=== PATIENT | male | born 1960 | race Caucasian/White ===

== ENCOUNTER 2016-04-16 14:49 | Emergency (ER) | payer OTHER ==
[~2016-04-16] VITALS: Ht 167.6 cm; Wt 73.8 kg
[~2016-04-16 14:49] MED LIST: KEFLEX500 MG PO; VICODIN 5-3001 EACH PO
[2016-04-16] MEDS ORDERED: BUSPAR5 MG PO (16:38)
[2016-04-16] MEDS ORDERED: WELLBUTRIN XL300 MG PO (16:38)
[2016-04-16] MEDS ORDERED: KEFLEX500 MG PO (19:52)
[2016-04-16 20:45] VITALS: BP 140/85
== END 2016-04-16 20:46 | disposition home or self-care (01) ==
LOC: EME 14:49
PROC: 0HCGXZZ Extirpation of Matter from Left Hand Skin, External Approach (ICD-10-PCS; principal; 2016-04-16)
DX: S60.352A Superficial foreign body of left thumb, initial encounter (principal); W45.8XXA Other foreign body or object entering through skin, initial encounter
CPT/HCPCS: 99281; 99283; S0020

== ENCOUNTER 2016-06-05 10:15 | Emergency (ER) | payer OTHER ==
[~2016-06-05] VITALS: Ht 167.6 cm; Wt 74.2 kg
[~2016-06-05 10:15] MED LIST changes: +BUSPAR5 MG PO; +WELLBUTRIN XL300 MG PO
[2016-06-05 11:08] LABS: HEMATOCRIT 44.7 % (38.0-50.0); MCHC 33.6 G/DL (30.0-36.0); MCV 92.4 FL (86-99); PLATELET COUNT 266 K/uL (156-360); RBC DIS.WIDTH-CV 13.1 % (11.8-14.6); RED BLOOD COUNT 4.84 M/uL (4.00-5.50); WHITE BLOOD COUNT 7.1 K/uL (4.1-10.2)
[2016-06-05 11:19] LABS: CHLORIDE 108 mEq/L (99-109); POTASSIUM 5.1 mEq/L (3.7-5.4); SODIUM 140 mEq/L (136-147)
[2016-06-05 11:21] LABS: GLUCOSE 145 mg/dL (70-99)
[2016-06-05 11:23] LABS: ANION GAP 8 MEQ/L (2-14); TOTAL BILIRUBIN 0.5 mg/dL (0.0-1.0)
[2016-06-05 11:25] LABS: ALKALINE PHOSPHATASE 81 IU/L (3-129); GFR ESTIMATE (CALCULATED) > 59 mL/min/
[2016-06-05 11:26] LABS: UREA NITROGEN (BUN) 20 mg/dL (9-23)
[2016-06-05 11:47] LABS: ADD MIUA? YES; BILIRUBIN NEGATIVE; BLOOD LARGE; COLOR YELLOW ((YELLOW)); GLUCOSE (STRIP) NEGATIVE; KETONES NEGATIVE; LEUKOCYTES NEGATIVE; NITRITE NEGATIVE; PROTEIN (STRIP) 30; SPECIFIC GRAVITY 1.025 (1.000-1.030); UROBILINOGEN 0.2 MG/DL (0.2-1.0)
[2016-06-05 11:49] LABS: BACTERIA RARE /HPF; EPITHELIAL CELLS NONE SEEN /HPF; MUCUS 2+ /LPF; RED BLOOD CELLS TNTC /HPF (0-5); UCUL ADDED? NO; WHITE BLOOD CELLS 0-5 /HPF (0-5)
[2016-06-05] MEDS ORDERED: LORTAB 5-325 M1 EACH PO (12:29)
[2016-06-05] MEDS ORDERED: NAPROSYN500 MG PO (12:29)
[2016-06-05] MEDS ORDERED: FLOMAX0.4 MG PO (12:29)
[2016-06-05 13:13] VITALS: BP 128/69
== END 2016-06-05 13:14 | disposition home or self-care (01) ==
LOC: EME 10:15
PROVIDERS: Nurse Practitioner Family
DX: N13.2 Hydronephrosis with renal and ureteral calculous obstruction (principal); Z87.891 Personal history of nicotine dependence
CPT/HCPCS: 74176; 80053; 81003; 85027; 99281; 99284; J1885